=== PATIENT | male | born 1950 | race Caucasian/White ===

== ENCOUNTER 2018-10-03 23:21 | Emergency (ER) | payer MEDICARE ==
[~2018-10-03] VITALS: Ht 170.2 cm; Wt 86.2 kg
[2018-10-04] MEDS ORDERED: CEFTRIAXONE SOD 1 GM/NS 50 ML 50 ML IV ONE
[2018-10-04] MEDS ORDERED: SODIUM CHLORIDE 0.9% 1000ML 1,000 ML IV ONE
[2018-10-04] MEDS ORDERED: ACETAMINOPHEN 325 MG TAB PO ONE
--- NOTE | 2018-10-04 00:41 | Diagnostic Imaging Report ---
CHEST 2 VIEWS, Technique: CHEST 2 VIEWS Comparison: None Clinical history: Fever DISCUSSION: Normal appearance of the cardiomediastinal silhouette. Linear left basilar atelectasis or scar. No consolidation or edema. No effusion or pneumothorax. IMPRESSION: No acute abnormality Signed by: Dr Stephanie Richards MD on 10/04/2018 12:37 AM
[2018-10-04 00:57] LABS: BASOPHILS % 0.1 % (0.0-1.0); HEMATOCRIT 41.1 % (38.2-49.6); HEMOGLOBIN 13.5 g/dL (14.0-18.0); LYMPHOCYTES # (AUTO) 0.9 (1.0-3.2); LYMPHOCYTES % 5.9 % (18.0-39.1); MEAN CORPUSCULAR HEMOGLOBIN 29.8 pg (28-32); MEAN CORPUSCULAR HGB CONC 32.8 g/dL (31-35); MEAN CORPUSCULAR VOLUME 90.7 fL (81-99); MONOCYTES % 6.9 % (4.4-11.3); NEUTROPHILS # (AUTO) 13.1 (2.1-6.9); NEUTROPHILS % 86.2 % (38.7-80.0); PLATELET COUNT 211 x10e3/uL (140-360); RED BLOOD COUNT 4.53 x10e6/uL (4.3-5.7); RED CELL DISTRIBUTION WIDTH 13.5 % (11.7-14.4)
[2018-10-04 01:03] LABS: BACTERIA,URINE MANY /HPF; BILIRUBIN,URINE NEGATIVE (NEGATIVE); CLARITY,URINE CLOUDY (CLEAR); COLOR,URINE YELLOW (YELLOW); EPITHELIAL CELLS,URINE FEW /LPF; KETONES,URINE 1+ (NEGATIVE); LEUKOCYTE ESTERASE ,URINE 2+ (NEGATIVE); NITRITE,URINE POSITIVE (NEGATIVE); PROTEIN,URINE DIPSTICK 1+ (NEGATIVE); RBC,URINE 0-5 /HPF (0-5); URINE UROBILINOGEN 1 mg/dL (0.2 - 1); WBC,URINE (MAN) 21-50 /HPF (0-5)
[2018-10-04 01:15] LABS: ALANINE AMINOTRANSFERASE 12 IU/L (0-55); ALBUMIN 4.1 g/dL (3.5-5.0); ALBUMIN/GLOBULIN RATIO 1.6 (0.8-2.0); ALKALINE PHOSPHATASE 57 IU/L (40-150); BLOOD UREA NITROGEN 12 mg/dL (7-26); BUN/CREATININE RATIO 13 (6-25); CALCIUM 9.3 mg/dL (8.4-10.2); CARBON DIOXIDE 23 mmol/L (22-29); CHLORIDE 102 mmol/L (98-107); CREATININE, SERUM 0.96 mg/dL (0.72-1.25); EST GLOMERULAR FILTRATION RATE > 60 ML/MIN (60-); GLUCOSE 102 mg/dL (74-118); SODIUM 137 mmol/L (136-145)
== END 2018-10-04 02:30 | disposition home or self-care (01) ==
LOC: ER 23:21
DX: R30.0 Dysuria (principal); R50.9 Fever, unspecified; N30.90 Cystitis, unspecified without hematuria
CPT/HCPCS: 36415; 71046; 80053; 81001; 83605; 85025; 87040; 87086; 87186; 87400; 99284; J0696; J7030

== ENCOUNTER 2018-12-16 05:00 | Observation (INO) | payer MEDICARE ==
[2018-12-13 10:40] LABS: BASOPHILS % 0.3 % (0.0-1.0); EOSINOPHILS # (AUTO) 0.1 (0.0-0.4); EOSINOPHILS % 1.2 % (0.0-6.0); HEMATOCRIT 43.7 % (38.2-49.6); HEMOGLOBIN 14.2 g/dL (14.0-18.0); LYMPHOCYTES % 26.5 % (18.0-39.1); MEAN CORPUSCULAR HEMOGLOBIN 29.8 pg (28-32); MEAN CORPUSCULAR HGB CONC 32.5 g/dL (31-35); MEAN CORPUSCULAR VOLUME 91.6 fL (81-99); MONOCYTES # (AUTO) 0.5 (0.2-0.8); MONOCYTES % 6.1 % (4.4-11.3); NEUTROPHILS # (AUTO) 4.9 (2.1-6.9); NEUTROPHILS % 65.4 % (38.7-80.0); PLATELET COUNT 252 x10e3/uL (140-360); RED BLOOD COUNT 4.77 x10e6/uL (4.3-5.7); RED CELL DISTRIBUTION WIDTH 13.5 % (11.7-14.4)
[2018-12-13 11:13] LABS: ALANINE AMINOTRANSFERASE 8 IU/L (0-55); ALBUMIN 4.3 g/dL (3.5-5.0); ALBUMIN/GLOBULIN RATIO 1.5 (0.8-2.0); ALKALINE PHOSPHATASE 57 IU/L (40-150); ANION GAP 11.9 mmol/L (8-16); BLOOD UREA NITROGEN 10 mg/dL (7-26); BUN/CREATININE RATIO 11 (6-25); CALCIUM 9.3 mg/dL (8.4-10.2); CARBON DIOXIDE 26 mmol/L (22-29); CHLORIDE 103 mmol/L (98-107); CREATININE, SERUM 0.89 mg/dL (0.72-1.25); EST GLOMERULAR FILTRATION RATE > 60 ML/MIN (60-); GLUCOSE 99 mg/dL (74-118); POTASSIUM 3.9 mmol/L (3.5-5.1); SODIUM 137 mmol/L (136-145)
--- NOTE | 2018-12-13 12:30 | Diagnostic Imaging Report ---
EXAMINATION: PA and lateral views of the chest. COMPARISON: 10/04/2018 CLINICAL HISTORY: Preoperative study for TURP DISCUSSION: Lungs remain well-inflated. Hazy opacity along the cardiac apex likely reflects prominent epicardial fat. No airspace consolidation, pleural effusion, or pneumothorax. Stable cardiomediastinal contour. No acute osseous abnormality. IMPRESSION: No acute cardiopulmonary abnormalities. Signed by: Dr. Hector Sheth M.D. on 12/13/2018 12:27 PM
[~2018-12-16] VITALS: Ht 170.2 cm; Wt 85.0 kg
[2018-12-16] VITALS (7 sets, daily range): BP systolic 118–133; BP diastolic 63–70
[~2018-12-16 05:00] MED LIST: AMLODIPINE-BEN1 EACH PO; FLOMAX0.4 MG PO
--- OUTSIDE RECORDS SUMMARY | 2018-12-16 05:08 | XMS REPORT ---
Author Author [facility] Address Unknown Phone Unavailable Care Team Providers Care Tree Driller Name Role Phone ALLEN MAXWELL Unavailable Unavailable Erica LOVELACE Unavailable Unavailable Problems This patient has no known problems. Allergies, Adverse Reactions, Alerts This patient has no known allergies or adverse reactions. Medications This patient has no known medications. Results Test Description Test Time Test Comments Text Results Atomic Results Result Comments CHEST 2 VIEWS 2018-12-13 12:25:[address] [address] Patient Name: LORETTA ROBERTS MR #: [id number] : 1950 Age/Sex: 68/M Req #: [id number] Adm Physician: Ordered by: ALLEN MAXWELL MD Report #: [id number] Location: OR Room/Bed: Procedure: [id number] DX/CHEST 2 VIEWS Exam Date: 12/13/18 Exam Time: 1035 REPORT STATUS: Signed EXAMINATION: PA and lateral views of the chest. COMPARISON: 10/04/2018 CLINICAL HISTORY: Preoperative study for TURP DISCUSSION: Lungs remain well-inflated. Hazy opacity along the cardiac apex likely reflects prominent epicardial fat. No airspace consolidation, pleural effusion, or pneumothorax. Stable cardiomediastinal contour. No acute osseous abnormality. IMPRESSION: No acute cardiopulmonary abnormalities. Signed by: Dr. Madhavi Jackson M.D. on 12/13/2018 12:27 PM Dictated By: MADHAVI JACKSON MD 26 Transcribed By: VARINDER on 12/13/181226 COPY TO: ALLEN MAXWELL MD CHEST 2 VIEWS 2018-10-04 00:28:00 [place] [address] Patient Name: LORETTA ROBERTS MR #: [id number] : 1950 Age/Sex: 68/M Req #: [id number] Adm Physician: Ordered by: BILL LOVELACE MD Report #: [id number] Location: ER Room/Bed: Procedure: [id number] DX/CHEST 2 VIEWS Exam Date: Exam Time: REPORT STATUS: Signed CHEST 2 VIEWS, Technique: CHEST 2 VIEWS Comparison: None Clinical history: Fever DISCUSSION: Normal appearance of the cardiomediastinal silhouette. Linear left basilar atelectasis or scar. No consolidation or edema. No effusion or pneumothorax. IMPRESSION: No acute abnormality Signed by: Dr Emily Richards MD on 10/04/2018 12:37 AM Dictated By: EMILY RICHARDS MD Tr anscribed By: VARINDER on 10/04/1836 COPY TO: BILL LOVELACE MD
[2018-12-16] MEDS ORDERED: CEFAZOLIN SOD 2 GM/D5W 50ML 50 ML IV ONE (05:30)
[2018-12-16] MEDS ORDERED: BELLADONNA/OPIUM 60 MG SUPP PR ONE (07:33)
[2018-12-16] MEDS ORDERED: MEPERIDINE HCL INJ 25 MG/ML VIAL ONE (09:21)
[2018-12-16] MEDS ORDERED: KETOROLAC TROMETHAMINE 30 MG/ML VIAL IV PRN ×2 (10:45→11:15)
[2018-12-16] MEDS ORDERED: BELLADONNA/OPIUM 30 MG SUPP RC PRN ×2 (10:45→11:15)
[2018-12-16] MEDS ORDERED: TRAMADOL HCL 50 MG TAB PO PRN (10:45)
[2018-12-16] MEDS: DEXTROSE 5%/0.45% SOD CHL 1,000 ML IV SCH ×2 (11:41→20:52)
[2018-12-16] MEDS ORDERED: PROPOFOL IV EMULSION 10 MG/ML 20 ML VIAL ONE (17:55)
[2018-12-16] MEDS ORDERED: EPHEDRINE SULFATE INJ 50 MG/10 ML SYR ONE (17:55)
[2018-12-16] MEDS ORDERED: LIDOCAINE HCL 2% LOCAL INJ 5 ML SDV VIAL INJ ONE (17:55)
[2018-12-16] MEDS ORDERED: ONDANSETRON HCL INJ 2MG/ML 2ML 2 MG/ML VIAL ONE (17:55)
[2018-12-16] MEDS ORDERED: SEVOFLURANE INHAL SOLN 250 ML PEN BTL ONE (17:55)
[2018-12-16] MEDS ORDERED: DEXAMETHASONE SOD PHOS INJ 4 MG/ML VIAL ONE (17:55)
[2018-12-16] MEDS ORDERED: MIDAZOLAM HCL 2 MG/2 ML VIAL ONE (18:05)
[2018-12-16] MEDS ORDERED: KETAMINE HCL INJ 50 MG/ML 10 ML VIAL ONE (18:05)
[2018-12-16] MEDS ORDERED: FENTANYL CITRATE/PF 100MCG/2 ML INJ ONE (18:05)
--- NOTE | 2018-12-16 19:10 | NUR ---
REPORT TAKEN FROM AM RN.WALKING ROUNDS DONE.PT IS LYEING IN THE BED.
[2018-12-16] MEDS ORDERED: TAMSULOSIN HCL 0.4 MG CAP PO SCH (21:00)
[2018-12-16] MEDS ORDERED: AMLODIPINE BESYLATE 5 MG TAB PO SCH (21:00)
[2018-12-16] MEDS ORDERED: BENAZEPRIL HCL 10 MG TAB PO SCH (21:00)
--- NOTE | 2018-12-16 21:00 | NUR ---
ASSESSMENT DONE.AAOX4.SOME DISCOMFORT NOTED.REFUSED JOAN BEVERLY SUPPOSITORY.BLOOD TINGED URINE DRAINING.BUT NO BLOOD CLOTS NOTED.NO RESP.DISTRESS.BED LOCKED AND IN LOWEST POSITION.PHONE AND CALL LIGHT WITHIN REACH.INSTRUCTED TO CALL FOR ASSISTANCE NEEDED.
--- NOTE | 2018-12-17 00:23 | Operative Report ---
DATE OF PROCEDURE: 12/16/2018 SURGEON: Jhonny Woods MD PREOPERATIVE DIAGNOSES: 1. Urinary retention. 2. Benign prostatic hypertrophy. POSTOPERATIVE DIAGNOSES: 1. Urinary retention. 2. Benign prostatic hypertrophy. OPERATION PERFORMED: Cystoscopy and transurethral resection of the prostate with bipolar technique. BRIEF HISTORY: This is a 68-year-old male, who comes to the office complaining of slow urination. In the office, we did an ultrasound of the bladder, finding that he had over 300 mL of urine in his bladder. He was brought back to do a flow test, which was completely obstructed. His peak flow was approximately 3.8 mL/second and of course he had over 300 mL of urinary retention. 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 I discussed the problem with the patient, gave him pamphlets on treatment options. He had failed Flomax which he had been on, therefore, we felt that a transurethral resection of the prostate was indicated. We brought in for that procedure. PROCEDURE IN DETAIL: With the patient under satisfactory general anesthesia, the patient was placed in a supine position on the operating table. Legs were placed in stirrups. Genitalia was then prepped with Betadine soap and solution and draped in usual manner. At that point, a time-out was obtained. We corroborated that the proper patient was there and the procedure to be done and all in the room agreed. Procedure was started by doing a cystoscopy first with a 22-Portuguese 30 mL angle lens. The urethra was normal. Prostate had intravesical component of the prostate with multiple small calcifications within the bladder neck. Lateral lobes were small. Trigone was normal as well as the ureteral orifices. The bladder showed signs of chronic obstruction with cellules, saccules, one small diverticulum, and trabeculation was moderate to severe. The patient had been told that this could lead to urgency and urge incontinence after surgery, and that he may need to have medication for that. At this point, cystoscope was removed and replaced with a continuous-flow Olympus resectoscope with a bipolar element and normal saline irrigation. Resection was started of the bladder neck posteriorly removing the intravesical component, and then removing the rest of the prostate posteriorly all the way to the verumontanum. The next resection was started at the left side of the bladder neck, carried again to the verumontanum area and the right side was done next. Finally, a few shavings were done of the anterior aspect. At that point, the AllPeers evacuator was used to remove all prostatic chips from the bladder. I exchanged the cutting element from the loop to the button and went in and coagulated the prostatic bleeders. I also used some electrovaporization to electrovaporate the remaining tissue and make the prostatic fossa even. At that point, again we checked to make sure there were no bleeders. I checked the ureteral orifice and they were in the proper position as well as the trigone. At this point also, I checked to make sure that there was no subtrigonal resection. At this point, the instruments were removed and replaced with a 22-Portuguese 30 mL balloon that was placed in using the catheter introducer. Irrigation was done until the return was clear. The patient was given a B and O suppository and sent in to recovery room in satisfactory condition. DISCHARGE INSTRUCTIONS: I spoke with the patient and the in the recovery room. He was going to stay overnight to observe the patient and control his pain with B and O suppositories. The next morning, if the urine is clear, the patient will be sent home with a leg bag and an overnight bag. He was given tramadol for pain and he was also given Keflex to take one twice a day. He will be seen in the office on Thursday morning. If his urine is giovanna or clear, the Goodrich catheter will be removed. I discussed with the patient that once we hear about the pathology from the pathologist, I would tell him whether this prostate was completely benign or there was some cancer in the prostate or not. MD JH NunezG/MODL /[id number]
[2018-12-17 00:48] VITALS: BP 151/70
--- NOTE | 2018-12-17 02:16 | NUR ---
PT LYEING COMFORTABLY IN THE BED.NO PAIN VOICED.
[2018-12-17 04:00] VITALS: BP 119/67
[2018-12-17] MEDS: DEXTROSE 5%/0.45% SOD CHL 1,000 ML IV SCH (06:01)
--- NOTE | 2018-12-17 06:01 | NUR ---
NO PAIN VOICED.TEA COLORED URINE DRAINING.
--- NOTE | 2018-12-17 07:00 | NUR ---
REPORT GIVEN TO THE ONCOMING RN.WALKING ROUNDS DONE.STABLE CONDITION.
[2018-12-17 08:18] VITALS: BP 139/65
[2018-12-17] MEDS ORDERED: KEFLEX500 MG PO (08:20)
[2018-12-17] MEDS ORDERED: ULTRAM 50MG50 MG PO (08:21)
[2018-12-17 12:05] VITALS: BP 129/60
--- NOTE | 2018-12-17 13:06 | NUR ---
DISCHARGE INSTRUCTIONS REVIEWED WITH PT AND FAMILY, VERBALIZED UNDERSTANDING, EDUCATED PT HOW TO CHANGE OVERNIGHT TO LEG BAG , PT VERBALIZED UNDERSTANDING, WHEELED OFF UNIT VIA WC FOR DISCHARGE, NO CHANGE IN CONDITION
[2018-12-17 13:11] VITALS: BP 129/60
== END 2018-12-17 13:04 | disposition home or self-care (01) ==
LOC: OR 05:00 → PACU V 09:12 → MED/SURG 10:37
PROVIDERS: ADMIT Urology; ATTEND Urology
DX: N40.1 Benign prostatic hyperplasia with lower urinary tract symptoms (principal); Z01.810 Encounter for preprocedural cardiovascular examination; Z01.812 Encounter for preprocedural laboratory examination; Z01.811 Encounter for preprocedural respiratory examination; N13.8 Other obstructive and reflux uropathy; R39.14 Feeling of incomplete bladder emptying; R33.8 Other retention of urine; R39.12 Poor urinary stream; N39.43 Post-void dribbling; N32.3 Diverticulum of bladder; I10 Essential (primary) hypertension; Z80.52 Family history of malignant neoplasm of bladder; Z80.8 Family history of malignant neoplasm of other organs or systems; Z82.49 Family history of ischemic heart disease and other diseases of the circulatory system; E11.9 Type 2 diabetes mellitus without complications; N41.0 Acute prostatitis
CPT/HCPCS: 36415; 52601; 71046; 80053; 85025; 87086; 88305; 93005; G0378 ×2; J0690; J1100; J2001; J2175; J2250; J2405; J2704